=== PATIENT | female | born 1955 | race Caucasian/White ===

== ENCOUNTER 2018-04-01 16:03 | Emergency (ER) | payer OTHER ==
[~2018-04-01] VITALS: Ht 162.6 cm; Wt 73.0 kg
[2018-04-01 16:48] LABS: CULTURE INDICATED? YES; MICROSCOPIC INDICATED
[2018-04-01] MEDS ORDERED: SODIUM CHLORIDE 0.9% 1,000ML IVBOLUS ONE (17:00)
[2018-04-01] MEDS ORDERED: CEFTRIAXONE PMX 1GM/50ML 50 ML IV ONE (17:30)
[2018-04-01 17:33] LABS: ALBUMIN 3.3 g/dL (3.4-5.0); ANION GAP 12 mmol/L (5-15); CALCIUM 9.2 mg/dL (8.5-10.1); CHLORIDE 96 mmol/L (98-107)
[2018-04-01] MEDS ORDERED: CEFTRIAXONE PMX 1GM/50ML 50 ML ONE (17:34)
[2018-04-01 17:37] LABS: BASOPHILS # (AUTO) 0.03 x10^3/uL (0-0.1); BASOPHILS % (AUTO) 0 % (0-1); EOSINOPHILS # (AUTO) 0.12 x10^3/uL (0-0.4); EOSINOPHILS % (AUTO) 2 % (1-7); LYMPHOCYTES # (AUTO) 1.46 x10^3/uL (1-3.4); LYMPHOCYTES % (AUTO) 19 % (22-44); MD NO; MEAN CORPUSCULAR HEMOGLOBIN 36.2 pg (27.0-34.8); MEAN CORPUSCULAR HGB CONC 34.9 g/dL (32.4-35.8); MEAN CORPUSCULAR VOLUME 103.6 fL (80-100); MEAN PLATELET VOLUME 7.3 fL (7.4-10.4); MONOCYTES # (AUTO) 0.51 x10^3/uL (0.2-0.8); MONOCYTES % (AUTO) 7 % (2-9); NEUTROPHILS # (AUTO) 5.65 x10^3/uL (1.8-6.8); NEUTROPHILS % (AUTO) 73 % (42-75); PLATELET COUNT 226 x10^3/uL (130-400); RED BLOOD COUNT 3.06 x10^6/uL (3.82-5.3); RED CELL DISTRIBUTION WIDTH 13.7 % (9.6-15.2)
[2018-04-01 17:38] LABS: ALANINE AMINOTRANSFERASE 42 U/L (12-78); ALKALINE PHOSPHATASE 90 U/L (45-117); BILIRUBIN,TOTAL 1.4 mg/dL (0.2-1.0); CREATININE 1.41 mg/dL (0.55-1.02); TROPONIN I < 0.015 ng/mL (0.000-0.045)
[2018-04-01 17:44] LABS: T4 (THYROXINE) 7.6 mcg/dL (4.8-13.9)
[2018-04-01 19:25] VITALS: BP 132/61
== END 2018-04-01 19:27 | disposition home or self-care (01) ==
LOC: ED 19:05
DX: N10 Acute pyelonephritis (principal); I10 Essential (primary) hypertension
CPT/HCPCS: 36415; 71045; 80053; 81001; 83605; 84145; 84436; 84443; 84484; 85025; 87040; 87077; 87086; 87186; 93005; 96365; 99285; J0696; J7030